=== PATIENT | male | born 1955 | race Hispanic/Latino ===

== ENCOUNTER 2018-06-14 05:57 | Day surgery (SDC) | payer OTHER ==
[2018-06-14] MEDS ORDERED: XYLOCAINE MPF 2% ONE (07:21)
[2018-06-14] MEDS ORDERED: DIPRIVAN 10 MG/ML IV ONE (07:22)
[2018-06-14] MEDS ORDERED: SUBLIMAZE ONE (07:22)
[2018-06-14] MEDS ORDERED: LACTATED RINGERS 1,000 ML IV SCH (08:00)
[2018-06-14] MEDS ORDERED: ANCEF/STERILE WATER 2 GM/20 ML IV NR (08:00)
[2018-06-14] MEDS ORDERED: LACTATED RINGERS 1,000 ML ONE (08:02)
--- NOTE | 2018-06-14 08:06 | Anesthesia Day of Surgery ---
Anesthesia Day of Surgery - Day of Surgery Patient Examined: Yes Patient H&P Reviewed: Yes Patient is NPO: Yes
[2018-06-14] MEDS ORDERED: ZOFRAN ONE (08:41)
--- NOTE | 2018-06-14 08:49 | Anesthesia Consultation ---
Anesthesia Consult and Med Hx Date of service: 06/14/18 - Airway Anesthetic Teeth Evaluation: Good ROM Head & Neck: Adequate Mental/Hyoid Distance: Inadequate Mallampati Class: Class IV Intubation Access Assessment: Possibly Difficult - Pulmonary Exam CTA: Yes - Cardiac Exam Cardiac Exam: RRR - Pre-Operative Health Status ASA Pre-Surgery Classification: ASA2 Proposed Anesthetic Plan: General - Pulmonary Hx Smoking: No Hx Respiratory Symptoms: No Hx Sleep Apnea: Yes (DX SLEEP APNEA , NO CPAP USE.) - Cardiovascular System Hx Hypertension: Yes (OFF MEDS X 1 YR) Hx Heart Attack/AMI: No - Central Nervous System Hx Seizures: No CVA: No - Gastrointestinal Hx Gastroesophageal Reflux Disease: Yes (mild; well controlled with occasional OTC meds) - Endocrine Hx Renal Disease: No Hx Liver Disease: No Hx Insulin Dependent Diabetes: No Hx Non-Insulin Dependent Diabetes: No Hx Thyroid Disease: No - Other Systems Hx Cancer: Yes (MELANOMA LEFT SHOULDER- REMOVED-NO CHEMO/RADIATION) - Additional Comments Anesthesia Medical History Comments: No hx anesthetic complications.
--- NOTE | 2018-06-14 09:18 | Short Stay Summary ---
Short Stay Documentation Date of service: 06/14/18 - History H&P: obtained from office - Allergies and Medications Current Medications: Allergies No Known Allergies Allergy (Verified 05/29/18 15:37) Home Medications Medication Instructions Recorded Confirmed Last Taken Type Ascorbic Acid [Vitamin C] 1,000 mg PO DAILY 05/29/18 06/14/18 06/13/18 09:00 History Aspirin [Lo-Dose Aspirin EC] 81 mg PO DAILY 05/29/18 06/14/18 06/08/18 09:00 History Cholecalciferol (Vitamin D3) 2,000 unit PO DAILY 05/29/18 06/14/18 06/13/18 09: 00 History [Vitamin D3] Cyanocobalamin (Vitamin B-12) 2,500 mcg PO DAILY 05/29/18 06/14/18 06/13/18 09: 00 History [Vitamin B12] Gemfibrozil [Lopid] 600 mg PO BID 05/29/18 06/14/18 06/13/18 20:00 History Multivit-Min/FA/Lycopen/Lutein 1 each PO DAILY 05/29/18 06/14/18 06/13/18 09:00 History [Centrum Silver Tablet] Ranitidine HCl [Zantac 150 MG TAB] 150 mg PO PRN PRN 05/29/18 05/29/18 Unknown History Active Medications Cefazolin Sodium (Ancef/Sterile Water 2 Gm/20 Ml) 2 gm IV PREOP NR Stop: 06/14/18 23:59 Lactated Ringer's (Lactated Ringers) 1,000 mls @ 75 mls/hr IV DIRECT DAQUAN Last Admin: 06/14/18 08:12 Dose: 75 mls/hr - Brief post op/procedure progress note Date of procedure: 06/14/18 Pre-op diagnosis: rt renal stone Post-op diagnosis: same Procedure: rt eswl Anesthesia: BRANDIEA Surgeon: CLAUDINE MCNAIR Estimated blood loss: none Condition: stable - Hospital course Hospital course: percocet & post op info on chart - Disposition Condition at discharge: Stable Disposition: DC-01 TO HOME OR SELFCARE Short Stay Discharge Plan Follow up with: JOHN PAUL IRAHETA MD [Primary Care Provider] - 7 Days
[2018-06-14] MEDS ORDERED: ZOFRAN IV PRN (09:24)
[2018-06-14] MEDS ORDERED: DILAUDID IV PRN (09:24)
--- NOTE | 2018-06-14 09:36 | Operative Report ---
PREOPERATIVE DIAGNOSIS: Right renal stone, 7 mm. POSTOPERATIVE DIAGNOSIS: Right renal stone, 7 mm. PROCEDURE: Right extracorporeal shock wave lithotripsy (stage). SURGEON: Ronn Guevara MD ANESTHESIA: General. ESTIMATED BLOOD LOSS: Minimal. FLUIDS: Crystalloid. COMPLICATIONS: No complications. INDICATIONS: This patient is a 62-year-old gentleman seen by Dr. Parham in the office. CT of abdomen and pelvis revealed a 7 mm right renal stone. Options were discussed. The patient agreed to proceed. Also, there is a very small parenchymal stone on the left side. DESCRIPTION OF PROCEDURE: The patient was taken to the operative suite, placed in a supine position. After adequate general anesthesia, the stone was localized in 2 planes using fluoroscopy. Extracorporeal shock wave lithotripsy was administered with a maximum kV of 8 and 3000 shocks. Adequate fragmentation could be appreciated. He tolerated the procedure well and was extubated and taken to recovery room. He will go home on Percocet, strain his urine. Follow up in the office. JOB# [id number] [facility]
[2018-06-14 11:25] VITALS: BP 126/75
--- NOTE | 2018-06-14 12:51 | Post Anesthesia Evaluation ---
- Post Anesthesia Evaluation Patient Participated: Yes Airway Patent: Yes Stable Respiratory Function: Yes Nausea/Vomiting: No Temp > 96.8F: Yes Pain Manageable: Yes Adequeate Hydration: Yes Anesthesia Complications: No
== END 2018-06-14 10:35 | disposition home or self-care (01) ==
LOC: OR 05:57
PROVIDERS: ATTEND Urology
DX: N20.0 Calculus of kidney (principal); I10 Essential (primary) hypertension; G47.30 Sleep apnea, unspecified; E78.00 Pure hypercholesterolemia, unspecified; K21.9 Gastro-esophageal reflux disease without esophagitis; Z98.890 Other specified postprocedural states; Z85.89 Personal history of malignant neoplasm of other organs and systems; Z79.899 Other long term (current) drug therapy; Z79.82 Long term (current) use of aspirin; Z71.3 Dietary counseling and surveillance; Z90.49 Acquired absence of other specified parts of digestive tract
CPT/HCPCS: 50590; J0690; J2405; J2704; J3010; J7120

== ENCOUNTER 2019-02-28 11:36 | Day surgery (SDC) | payer OTHER ==
[2019-02-28] MEDS ORDERED: ANCEF/STERILE WATER 2 GM/20 ML IV NR (13:00)
--- NOTE | 2019-02-28 13:40 | Anesthesia Consultation ---
Anesthesia Consult and Med Hx Date of service: 02/28/19 - Airway Anesthetic Teeth Evaluation: Good ROM Head & Neck: Adequate Mental/Hyoid Distance: Adequate Mallampati Class: Class II Intubation Access Assessment: Good - Pulmonary Exam CTA: Yes - Cardiac Exam Cardiac Exam: RRR - Pre-Operative Health Status ASA Pre-Surgery Classification: ASA3 Proposed Anesthetic Plan: General - Pulmonary Hx Smoking: No Hx Respiratory Symptoms: No Hx Sleep Apnea: Yes (DX SLEEP APNEA , NO CPAP USE.) - Cardiovascular System Hx Hypertension: Yes (OFF MEDS X 2 YR) Hx Heart Attack/AMI: No - Central Nervous System Hx Seizures: No CVA: No - Gastrointestinal Hx Gastroesophageal Reflux Disease: Yes (mild; well controlled with occasional OTC meds) - Endocrine Hx Renal Disease: No Hx Liver Disease: No Hx Insulin Dependent Diabetes: No Hx Non-Insulin Dependent Diabetes: No Hx Thyroid Disease: No - Other Systems Hx Cancer: Yes (MELANOMA LEFT SHOULDER- REMOVED-NO CHEMO/RADIATION)
--- NOTE | 2019-02-28 13:41 | Anesthesia Day of Surgery ---
Anesthesia Day of Surgery - Day of Surgery Patient Examined: Yes Patient H&P Reviewed: Yes Patient is NPO: Yes Beta Blockers: No Cardiac Clearance: No Pulmonary Clearance: No
[2019-02-28] MEDS ORDERED: DILAUDID IV PRN (13:43)
[2019-02-28] MEDS ORDERED: SUBLIMAZE IV PRN (13:43)
[2019-02-28] MEDS ORDERED: NARCAN 0.4 MG/1 ML IV PRN (13:43)
[2019-02-28] MEDS ORDERED: ZOFRAN IV PRN (13:43)
[2019-02-28] MEDS ORDERED: LACTATED RINGERS 1,000 ML IV SCH (14:00)
[2019-02-28] MEDS ORDERED: DIPRIVAN 10 MG/ML IV ONE ×2 (14:02→14:33)
[2019-02-28] MEDS ORDERED: SUBLIMAZE ONE ×2 (14:02→14:41)
[2019-02-28] MEDS ORDERED: XYLOCAINE MPF 2% ONE (14:02)
[2019-02-28] MEDS ORDERED: PEPCID IV ONE (14:15)
[2019-02-28] MEDS ORDERED: ZOFRAN ONE (14:33)
[2019-02-28] MEDS ORDERED: WATER FOR IRRIG STERILE IR ONE (14:44)
[2019-02-28] MEDS ORDERED: OMNIPAQUE 300 MG/50 ML (CATH LAB) IV ONE (14:48)
--- NOTE | 2019-02-28 14:59 | Post Operative Note ---
Date of procedure: 02/28/19 Pre-op diagnosis: l ureteral stone Post-op diagnosis: same Findings: no stone Procedure: l ureteroscopy rpgs Anesthesia: GETA Surgeon: CHRISTIANO SHUKLA Estimated blood loss: none Pathology: none Condition: stable Disposition: PACU
--- NOTE | 2019-02-28 15:00 | Discharge Summary ---
Short Stay Discharge Plan Activity: no restrictions, other Weight Bearing Status: Non-Weight Bearing Diet: low fat, low cholesterol, low salt Special Instructions: other (inc fluids ) Follow up with: JOHN PAUL IRAHETA MD [Primary Care Provider] - 7 Days CHRISTIANO SHUKLA MD [Staff Physician] - 14 Days
--- NOTE | 2019-02-28 15:15 | Operative Report ---
PREOPERATIVE DIAGNOSIS: Left ureteral stone. POSTOPERATIVE DIAGNOSIS: Suspected passed ureteral stone. PROCEDURE: Cystoscopy, bilateral retrograde and left lower ureteroscopy. SURGEON: Long Parham MD ANESTHESIA: General. FINDINGS: This is a gentleman, who had a lower ureteral stone. He states it was 9 mm. He had no pain. He thought he may have passed something real tiny, now presents for treatment. DESCRIPTION OF PROCEDURE: The patient was brought to the operating room and placed on the operating table. Following induction of anesthesia, placed in lithotomy position, prepped and draped in usual sterile fashion. Cystourethroscopy showed a normal bladder, normal urethra. Bladder neck was opened. Retrograde showed good filling and good drainage. There was some questionable tiny area in the left side. The right side had a phlebolith. The orifice was quite dilated. A wire coiled in the kidney and flexible ureteroscopy of the vessels was normal. The patient tolerated the procedure well. No more manipulation was done. No stent was left. There was excellent drainage, complete drainage. Brought to recovery room without ____, in stable condition. JOB# [id number] [facility]
[2019-02-28 17:29] VITALS: BP 146/87
--- NOTE | 2019-03-04 07:12 | Fluoroscopy Report ---
Bilateral retrograde urography. History: Left ureter stone. Findings: No calculus is identified in the preliminary radiograph. The contrast-filled ureters bilaterally do not reveal any filling defects. No significant retention of contrast is seen. Impression: No calculus identified. No evidence of obstruction.
== END 2019-02-28 17:15 | disposition home or self-care (01) ==
LOC: OR 11:36
PROVIDERS: ATTEND Urology
DX: N20.2 Calculus of kidney with calculus of ureter (principal); E78.00 Pure hypercholesterolemia, unspecified; I10 Essential (primary) hypertension; G47.30 Sleep apnea, unspecified; K21.9 Gastro-esophageal reflux disease without esophagitis; M19.90 Unspecified osteoarthritis, unspecified site; Z96.653 Presence of artificial knee joint, bilateral; Z79.82 Long term (current) use of aspirin; Z79.899 Other long term (current) drug therapy; Z98.890 Other specified postprocedural states; Z90.49 Acquired absence of other specified parts of digestive tract; Z80.8 Family history of malignant neoplasm of other organs or systems; Z86.2 Personal history of diseases of the blood and blood-forming organs and certain disorders involving the immune mechanism
CPT/HCPCS: 52351; 74420; A4217; C1726; C1758; C1769; J0690; J2405; J2704; J3010; J7120; Q9967